=== PATIENT | female | born 1985 | race Caucasian/White ===

== ENCOUNTER 2020-03-28 07:00 | Outpatient (CLI) | payer OTHER | END 2020-03-28 23:59 | disposition home or self-care (01) | LOC: COV 07:00 | PROVIDERS: ATTEND Family Medicine | DX: R05 Cough (principal); R06.02 Shortness of breath; M79.10 Myalgia, unspecified site; R68.83 Chills (without fever); R07.0 Pain in throat; R09.81 Nasal congestion; J34.89 Other specified disorders of nose and nasal sinuses; Z20.828 Contact with and (suspected) exposure to other viral communicable diseases ==

== ENCOUNTER 2022-09-02 21:16 | Emergency (ER) | payer MEDICAID, OTHER ==
--- NOTE | 2022-09-02 22:28 | XRAY Report ---
PROCEDURE: Ankle 3 View LT INDICATIONS: Trauma TECHNIQUE: 3 views of the ankle were acquired. COMPARISON: None. FINDINGS: Bones: No fractures or dislocations. Ankle mortise is normally aligned. No suspicious bony lesions . Soft tissues: No tibiotalar joint effusion. Achilles tendon appears normal. IMPRESSION: No acute bony abnormality. Reviewed by: Fernando Diaz MD on 09/02/2022 10:27 PM PDT Approved by: Fernando Diaz MD on 09/02/2022 10:27 PM PDT Station ID: [id number]
--- NOTE | 2022-09-03 04:05 | ED Physician Documentation ---
PD HPI LOWER EXT INJURY - Stated complaint Stated Complaint: LT ANKLE SWOLLEN/PX - Chief complaint Chief Complaint: Trauma Ext - History obtained from History obtained from: Patient - Additional information Additional information: HPI from patient. Patient c/o left ankle pain, sudden onset 8 PM tonight when she tripped at home, twisting the left ankle. She also sustained a superficial laceration to the ankle. Pain is worse with palpation, weight-bearing, and is predominantly lateral aspect of ankle. Review of Systems Musculoskeletal: reports: Joint pain, Joint swelling, Pain with weight bearing Neurologic: denies: Focal weakness, Numbness, Head injury PD PAST MEDICAL HISTORY - Past Medical History Respiratory: Asthma Psych: Depression, Anxiety, Bipolar disorder - Past Surgical History Past Surgical History: Yes /[employer]: section - Present Medications Home Medications: Ambulatory Orders Medication Instructions Recorded Confirmed Sertraline HCl [Zoloft] 200 mg PO DAILY 10/26/12 10/26/12 `Bcp DAILY 10/26/12 10/26/12 - Allergies Allergies/Adverse Reactions: Allergies Allergy/AdvReac Type Severity Reaction Status Date / Time Androgenic Anabolic Steroid AdvReac Mild Itching Verified 10/26/12 02:37 prednisone AdvReac Unknown Verified 09/02/22 21:26 - Social History Does the pt smoke?: No Smoking Status: Never smoker Does the pt drink ETOH?: No Does the pt have substance abuse?: No - Immunizations Immunizations are current?: Yes - POLST Patient has POLST: No PD ED PE NORMAL - Vitals Vital signs reviewed: Yes - General General: Alert and oriented X 3, No acute distress, Well developed/nourished PD ED PE EXPANDED - Extremities Extremities: Limited ROM (left ankle limited plantarflexion, inversion due to exacerbation of pain) Feet visual: 1 - swelling, tenderness 2 - laceration (0.75 cm superficial curvilinear laceration) Results - Vitals Vitals: Oxygen O2 Source Room air - Rads (name of study) left ankle xrays Relevant Findings:: Prelim report reviewed, EMP independent interpretation of test (I reviewed these images and my interpretation is no acute abnormality including no evidence of fracture, dislocation), See rad report PD Medical Decision Making - ED course Complexity details: reviewed results, re-evaluated patient, considered differential, d/w patient ED course: Normal left ankle xrays. Likely ankle sprain. Small, superficial laceration would not benefit from repair. Results d/w patient, return precautions reviewed. She is placed in an air-cast splint to minimize mobility for initial 4-5 days; similarly, given crutches to minimize weight-bearing during same timeframe. Departure - Departure Disposition: 01 Home, Self Care Clinical Impression: Left ankle sprain Condition: Good Instructions: ED Crutch Walking, ED Sprain Ankle Comments: There was no evidence of acute injury on the ankle x-rays. Specifically, no evidence of fracture or dislocation. Realize that diagnoses like sprain do not show up on plain film x-rays, and thus this is the working diagnosis at this time. As we discussed, luckily, most ankle sprains will heal without needing any specific intervention besides immobilization (ankle splint), minimizing the weightbearing using crutches, and time. If your symptoms are not improving after 3 to 4 days, arrange for reevaluation with your primary care provider. Similarly, if your symptoms have not resolved completely within 7 to 10 days, reevaluation with your primary care provider would be advised. Discharge Date/Time: 09/03/22 04:41
[2022-09-03 04:42] VITALS: BP 110/70
== END 2022-09-03 04:41 | disposition home or self-care (01) ==
LOC: ED 21:16
DX: S93.402A Sprain of unspecified ligament of left ankle, initial encounter (principal); W01.0XXA Fall on same level from slipping, tripping and stumbling without subsequent striking against object, initial encounter; Y92.009 Unspecified place in unspecified non-institutional (private) residence as the place of occurrence of the external cause
CPT/HCPCS: 99283